=== PATIENT | female | born 1970 ===

== ENCOUNTER 2016-10-06 14:04 | Emergency (ER) | payer MEDICAID ==
[2016-10-06 14:09] VITALS: BP 147/93; PULSE 83; RESP 20; TEMP 98; O2SAT 100
[2016-10-06] MEDS ORDERED: Sodium Chloride 0.9% 1,000 ML IV STA (14:47)
--- NOTE | 2016-10-06 14:57 | ED PDOC ---
HPI: Female Pain Time Seen by Provider: 10/06/16 14:36 Chief Complaint (Nursing): Abdominal Pain Chief Complaint (Provider): pelvic cramping History Per: Patient History/Exam Limitations: no limitations Onset/Duration Of Symptoms: Days (x 1) Current Symptoms Are (Timing): Still Present Associated Symptoms: Nausea. denies: Fever, Vomiting, Urinary Symptoms Additional Complaint(s): Mariela Tripathi is a 46 year old female, with a previous medical history of hypertension, who presents to the ED with complaints of pelvic cramping since yesterday. Patient reports developing associated symptoms of nausea, headache, vaginal bleeding and right sided pain earlier today. She denies any fever, chills, vomiting or urinary symptoms. Patient states to taking 800 mg ibuprofen yesterday and 2 advil pills today with minimal relief. Patient reports undergoing an endometrial ablation on September 14, 2016. PMD: Krish Castro MD Abnormal Vaginal Bleeding: Yes Past Medical History Reviewed: Historical Data, Nursing Documentation, Vital Signs Vital Signs: Last Vital Signs Temp 98 F 10/06/16 14:06 Pulse 83 10/06/16 14:06 Resp 20 10/06/16 14:06 BP 147/93 H 10/06/16 14:06 Pulse Ox 100 10/06/16 14:06 - Medical History PMH: HTN, Kidney Stones Denies: HIV, Chronic Kidney Disease - Surgical History Surgical History: Appendectomy, (x2) - Family History Family History: States: Unknown Family Hx - Home Medications Home Medications: Ambulatory Orders Medication Instructions Recorded Amoxicillin/Clavulanate [Augmentin 1 tab PO BID #14 tab 10/17/15 875 MG-125 MG] Oxycodone HCl/Acetaminophen 1 each PO TID PRN #60 tablet 10/17/15 [Percocet 5-325 mg Tablet] - Allergies Allergies/Adverse Reactions: Allergies Allergy/AdvReac Type Severity Reaction Status Date / Time No Known Allergies Allergy Verified 12/20/14 16:34 Review of Systems ROS Statement: Except As Marked, All Systems Reviewed And Found Negative Constitutional: Negative for: Fever, Chills Gastrointestinal: Positive for: Nausea. Negative for: Vomiting Genitourinary Female: Positive for: Vaginal Bleeding, Pelvic Pain. Negative for : Dysuria, Frequency, Incontinence Physical Exam - Reviewed Nursing Documentation Reviewed: Yes Vital Signs Reviewed: Yes - Physical Exam Appears: Positive for: Well, Non-toxic, No Acute Distress Head Exam: Positive for: ATRAUMATIC, NORMAL INSPECTION, NORMOCEPHALIC Skin: Positive for: Normal Color, Warm, Dry Neck: Positive for: Normal, Painless ROM Cardiovascular/Chest: Positive for: Regular Rate, Rhythm Respiratory: Positive for: CNT, Normal Breath Sounds Gastrointestinal/Abdominal: Positive for: Bowel Sounds, Soft, Tenderness (LUQ, RLQ, epigastric and suprapubic ). Negative for: Mass, Distended, Guarding, Rebound Extremity: Positive for: Normal ROM Neurologic/Psych: Positive for: Alert, Oriented - ECG O2 Sat by Pulse Oximetry: 100 (RA) Pulse Ox Interpretation: Normal Medical Decision Making Medical Decision Making: Initial Impression: Pelvic Pain vs UTI vs complication post endometrial ablation Initial Plan: * labs * urine * urine dipstick * IV NS 1,000 ml at 1,000 ml/hr * toradol 30 mg IV * zofran 4gm IV * urinalysis * US pelvis/transvag * reevaluation Scribe Attestation: Documented by Cynthia Sanchez, acting as a scribe for Rina Oneal MD. Provider Scribe Attestation: All medical record entries made by the Scribe were at my direction and personally dictated by me. I have reviewed the chart and agree that the record accurately reflects my personal performance of the history, physical exam, medical decision making, and the department course for this patient. I have also personally directed, reviewed, and agree with the discharge instructions and disposition.
[2016-10-06 15:18] LABS: BASO % 0.5 % (0.0-2.0); EOS # 0.5 K/uL (0.0-0.7); EOS % 8.1 % (0.0-4.0); LYMPH # 2.2 K/uL (1.0-4.3); LYMPH % 32.1 % (20.0-40.0); MEAN CELL VOLUME 91.5 fl (81.0-99.0); MEAN CORPUSCULAR HEMOGLOBIN 30.6 pg (27.0-31.0); MEAN CORPUSCULAR HGB CONC 33.4 g/dL (33.0-37.0); MEAN PLATELET VOLUME 9.5 fl (7.2-11.7); MONO # 0.6 K/uL (0.0-0.8); MONO % 9.3 % (0.0-10.0); NEUT # 3.4 K/uL (1.8-7.0); RED CELL DISTRIBUTION WIDTH 13.2 % (11.5-14.5); WHITE BLOOD COUNT 6.8 K/uL (4.8-10.8)
[2016-10-06 15:23] LABS: ALB/GLOB RATIO 1.3 (1.0-2.1); ALKALINE PHOSPHATASE 47 U/L (38-126); ALT/SGPT 33 U/L (9-52); AST/SGOT 29 U/L (14-36); BLOOD UREA NITROGEN 14 mg/dl (7-17); CALCIUM 9.2 mg/dL (8.4-10.2); CARBON DIOXIDE 27 mmol/L (22-30); CHLORIDE 105 mmol/L (98-107); GFR AFRICAN-AMERICAN > 60; GLUCOSE,RANDOM 109 mg/dL (65-105); POTASSIUM 4.2 MMOL/L (3.6-5.0); SODIUM 143 mmol/l (132-148); TOTAL PROTEIN 7.5 G/DL (6.3-8.2)
--- NOTE | 2016-10-06 15:40 | ED PDOC ---
- Laboratory Results Result Diagrams: 10/06/16 15:03 10/06/16 15:03 - ECG O2 Sat by Pulse Oximetry: 100 (RA) Pulse Ox Interpretation: Normal Medical Decision Making Medical Decision Makin:00 Patient signed out to me by Rina Oneal MD pending US results and final disposition. Informed by nurse that pt left before workupr performed. Scribe Attestation: Documented by Cynthia Sanchez, acting as a scribe for Oneyda Davis MD. Provider Scribe Attestation: All medical record entries made by the Scribe were at my direction and personally dictated by me. I have reviewed the chart and agree that the record accurately reflects my personal performance of the history, physical exam, medical decision making, and the department course for this patient. I have also personally directed, reviewed, and agree with the discharge instructions and disposition. Disposition - Clinical Impression Clinical Impression: Abdominal pain - POA Present On Arrival: None - Disposition Disposition: Eloped Disposition Time: 14:00 Condition: UNKNOWN
[2016-10-06 16:06] LABS: RBC URINE 484 /hpf (0-3); URINE BACTERIA RARE (<OCC); URINE BILIRUBIN NEGATIVE (NEGATIVE); URINE BLOOD LARGE (NEGATIVE); URINE COLOR YELLOW (YELLOW); URINE GLUCOSE (UA) NEG (Normal); URINE KETONE NEGATIVE (NEGATIVE); URINE LEUKOCYTE ESTERASE TRACE Leu/uL (Negative); URINE PROTEIN 100 mg/dL (NEGATIVE); URINE UROBILINOGEN 0.2-1.0 mg/dL (0.2-1.0); WBC URINE 17 /hpf (0-5)
== END 2016-10-06 15:49 | disposition left against medical advice (07) ==
LOC: H.ER 14:04
DX: R10.2 Pelvic and perineal pain (principal)

== ENCOUNTER 2017-04-02 12:40 | Emergency (ER) | payer MEDICAID ==
[2017-04-02 13:23] VITALS: BMI 35.6
[2017-04-02 13:24] VITALS: BP 146/94; PULSE 83; RESP 17; TEMP 97.9; O2SAT 100
[2017-04-02 14:15] LABS: BASO % 0.4 % (0.0-2.0); EOS # 0.6 K/uL (0.0-0.7); EOS % 8.2 % (0.0-4.0); HEMATOCRIT 38.9 % (34.0-47.0); LYMPH # 2.2 K/uL (1.0-4.3); LYMPH % 28.7 % (20.0-40.0); MEAN CORPUSCULAR HEMOGLOBIN 30.9 pg (27.0-31.0); MEAN CORPUSCULAR HGB CONC 33.9 g/dL (33.0-37.0); MEAN PLATELET VOLUME 9.6 fl (7.2-11.7); MONO # 0.6 K/uL (0.0-0.8); MONO % 7.6 % (0.0-10.0); NEUT # 4.3 K/uL (1.8-7.0); NEUT % 55.1 % (50.0-75.0); RED CELL DISTRIBUTION WIDTH 13.3 % (11.5-14.5); WHITE BLOOD COUNT 7.8 K/uL (4.8-10.8)
--- NOTE | 2017-04-02 14:28 | ED PDOC ---
HPI: Abdomen Time Seen by Provider: 04/02/17 13:29 Chief Complaint (Nursing): Abdominal Pain Chief Complaint (Provider): Abdominal Pain History Per: Patient History/Exam Limitations: no limitations Onset/Duration Of Symptoms: Other (x 4 weeks) Current Symptoms Are (Timing): Still Present Additional Complaint(s): Mariela is a 46 year old female, with a past medical history of cholecystectomy , appendectomy, and endometrial ablation, who presents to the Emergency Department complaining of abdominal pain since March 07. Patient states she has epigastric pain that radiates to left flank that occurs everyday. States vomiting and diarrhea that resolved after PMD gave Zofran and Lomotil. Patient states she vomited yesterday. Denies fever and symptoms. PMD: Krish Castro Abnormal Vaginal Bleeding: No Past Medical History Reviewed: Historical Data, Nursing Documentation, Vital Signs Vital Signs: Last Vital Signs Temp 97.9 F 04/02/17 13:23 Pulse 83 04/02/17 13:23 Resp 17 04/02/17 13:23 BP 146/94 H 04/02/17 13:23 Pulse Ox 100 04/02/17 16:08 - Medical History PMH: HTN, Kidney Stones Denies: HIV, Chronic Kidney Disease - Surgical History Surgical History: Appendectomy, Cholecystectomy, (x2) Other surgeries: Endometrial Ablation - Family History Family History: States: Unknown Family Hx - Home Medications Home Medications: Ambulatory Orders Medication Instructions Recorded Amoxicillin/Clavulanate [Augmentin 1 tab PO BID #14 tab 10/17/15 875 MG-125 MG] Oxycodone HCl/Acetaminophen 1 each PO TID PRN #60 tablet 10/17/15 [Percocet 5-325 mg Tablet] Dicyclomine [Bentyl] 20 mg PO QID PRN #10 tab 04/02/17 - Allergies Allergies/Adverse Reactions: Allergies Allergy/AdvReac Type Severity Reaction Status Date / Time No Known Allergies Allergy Verified 04/02/17 13:23 Review of Systems ROS Statement: Except As Marked, All Systems Reviewed And Found Negative Constitutional: Negative for: Fever Gastrointestinal: Positive for: Vomiting Genitourinary Female: Negative for: Dysuria, Hematuria Physical Exam - Reviewed Nursing Documentation Reviewed: Yes Vital Signs Reviewed: Yes - Physical Exam Appears: Positive for: Non-toxic Head Exam: Positive for: ATRAUMATIC, NORMAL INSPECTION, NORMOCEPHALIC Eye Exam: Positive for: Normal appearance Cardiovascular/Chest: Positive for: Regular Rate, Rhythm Respiratory: Positive for: Normal Breath Sounds Gastrointestinal/Abdominal: Positive for: Bowel Sounds, Soft, Tenderness (Mild Bilateral Lower Quadrant). Negative for: Mass, Distended, Guarding, Rebound Back: Positive for: L CVA Tenderness. Negative for: Vertebral Tenderness Neurologic/Psych: Positive for: Alert, Oriented - Laboratory Results Result Diagrams: 04/02/17 14:07 04/02/17 14:07 - ECG O2 Sat by Pulse Oximetry: 100 (RA) Pulse Ox Interpretation: Normal Medical Decision Making Medical Decision Making: Time: 13:44 Plan: - CT Abdominal and Pelvis without PO or IV Contrast - EKG - CMP - Lipase - CBC - Pepcid 20 mg IVP STAT - Zofran Inj - Urinalysis Scribe Attestation: Documented by Pietro Sandhu, acting as a scribe for Cynthia Taylor MD Provider Scribe Attestation: All medical record entries made by the Scribe were at my direction and personally dictated by me. I have reviewed the chart and agree that the record accurately reflects my personal performance of the history, physical exam, medical decision making, and the department course for this patient. I have also personally directed, reviewed, and agree with the discharge instructions and disposition. Disposition - Clinical Impression Clinical Impression: Abdominal pain in female - Patient ED Disposition Is Patient to be Admitted: No - Disposition Referrals: Krish Castro MD [Family Provider] - Disposition: Routine/Home Disposition Time: 16:11 Condition: STABLE Prescriptions: Dicyclomine [Bentyl] 20 mg PO QID PRN #10 tab PRN Reason: Pain, Moderate (4-7) Instructions: Abdominal Pain (ED) Forms: [employer] (Irish)
[2017-04-02 14:31] LABS: ALKALINE PHOSPHATASE 61 U/L (38-126); ALT/SGPT 61 U/L (9-52); AST/SGOT 50 U/L (14-36); BILIRUBIN,TOTAL 1.2 mg/dl (0.2-1.3); BLOOD UREA NITROGEN 16 mg/dl (7-17); CALCIUM 9.3 mg/dL (8.4-10.2); CARBON DIOXIDE 26 mmol/L (22-30); CHLORIDE 105 mmol/L (98-107); GFR AFRICAN-AMERICAN > 60; GLUCOSE,RANDOM 110 mg/dL (65-105); LIPASE 67 U/L (23-300); POTASSIUM 3.9 MMOL/L (3.6-5.0); SODIUM 141 mmol/l (132-148); TOTAL PROTEIN 8.3 G/DL (6.3-8.2)
[2017-04-02 14:32] LABS: URINE BILIRUBIN NEGATIVE (NEGATIVE); URINE BLOOD SMALL (NEGATIVE); URINE COLOR YELLOW (YELLOW); URINE GLUCOSE (UA) NEG (Normal); URINE KETONE NEGATIVE (NEGATIVE); URINE LEUKOCYTE ESTERASE NEG Leu/uL (Negative); URINE PROTEIN NEGATIVE (NEGATIVE); URINE UROBILINOGEN 0.2-1.0 mg/dL (0.2-1.0)
[2017-04-02 14:33] LABS: ALB/GLOB RATIO 1.2 (1.0-2.1); RBC URINE 9 /hpf (0-3); WBC URINE 3 /hpf (0-5)
--- NOTE | 2017-04-02 15:56 | CT ---
PROCEDURE: CT Abdomen and Pelvis without Oral or IV contrast. HISTORY: L flank pain COMPARISON: CT abdomen and pelvis without contrast performed 12/20/14, limited abdominal ultrasound performed 10/15/15 TECHNIQUE: Contiguous axial images of the abdomen and pelvis. No oral or IV contrast administered. Coronal and Sagittal reformats generated and reviewed. Radiation dose: Total exam DLP = 1022.50 mGy-cm. This CT exam was performed using one or more of the following dose reduction techniques: Automated exposure control, adjustment of the mA and/or kV according to patient size, and/or use of iterative reconstruction technique. FINDINGS: There is limited evaluation of the solid organs without the administration of IV contrast. LOWER THORAX: No visible consolidation, pleural effusion, or pneumothorax. LIVER: Hypoattenuation of the liver compatible with hepatic steatosis. GALLBLADDER AND BILE DUCTS: Cholecystectomy. PANCREAS: Unremarkable unenhanced appearance. SPLEEN: Unremarkable unenhanced appearance. ADRENALS: Unremarkable unenhanced appearance. KIDNEYS AND URETERS: No hydronephrosis or obstructing renal calculus. Punctate nonobstructing (approximately 1 mm) left renal calculus. 13 mm probable left parapelvic cyst. BLADDER: The urinary bladder appears unremarkable. REPRODUCTIVE: Uterus is present. APPENDIX: Postsurgical changes consistent with appendectomy. No secondary signs of acute appendicitis. BOWEL: The stomach is nondistended. Lack of oral contrast limits evaluation for bowel pathology. The bowel loops appear within normal limits of caliber without evidence of intestinal obstruction. PERITONEUM: No significant free fluid. No definite free air. LYMPH NODES: No bulky lymphadenopathy identified. VASCULATURE: No aortic aneurysm. BONES: Mild degenerative changes. OTHER FINDINGS: None. IMPRESSION: Hypoattenuation of the liver compatible with hepatic steatosis. Cholecystectomy. 13 mm probable left parapelvic renal cyst. Punctate nonobstructing (approximately 1 mm) left renal calculus.
--- NOTE | 2017-04-03 10:54 | CARD ---
APPROVED REPORT EKG Measurement Heart [id number] <Conclusion> Normal sinus rhythm Normal ECG
== END 2017-04-02 17:00 | disposition home or self-care (01) ==
LOC: H.ER 12:40
DX: R10.2 Pelvic and perineal pain (principal); Z87.442 Personal history of urinary calculi; I10 Essential (primary) hypertension
CPT/HCPCS: 74176; 80053; 81003; 81025; 83690; 85025; 93005; 96374; 99283; J2405

== ENCOUNTER 2017-05-08 14:31 | Emergency (ER) | payer MEDICAID ==
[2017-05-08 14:32] VITALS: BMI 35.6
[2017-05-08 14:43] VITALS: BP 156/102; PULSE 103; TEMP 97.6; O2SAT 97
[2017-05-08] MEDS ORDERED: Albuterol-Ipratrop 3 mg / 0.5 (3 ml) UD INH STA (15:03)
--- NOTE | 2017-05-08 15:05 | ED PDOC ---
HPI: SOB/CHF/COPD Time Seen by Provider: 05/08/17 14:49 Chief Complaint (Nursing): Shortness Of Breath Chief Complaint (Provider): Cough History Per: Patient Additional Complaint(s): 47 yo female, PMH of HTN, presents to ED with complaints of Difficulty breathing , cough and chest tightness x 2 weeks. Past Medical History Reviewed: Nursing Documentation, Vital Signs Vital Signs: Last Vital Signs Temp 97.6 F 05/08/17 14:40 Pulse 103 H 05/08/17 14:40 Resp 18 05/08/17 15:17 BP 156/102 H 05/08/17 14:40 Pulse Ox 97 05/08/17 15:05 - Medical History PMH: HTN, Kidney Stones Denies: HIV, Chronic Kidney Disease - Surgical History Surgical History: Appendectomy, Cholecystectomy, (x2) - Family History Family History: States: Unknown Family Hx - Living Arrangements Living Arrangements: With Family - Social History Current smoker - smoking cessation education provided: No Alcohol: None Drugs: Denies - Home Medications Home Medications: Ambulatory Orders Medication Instructions Recorded Amoxicillin/Clavulanate [Augmentin 1 tab PO BID #14 tab 10/17/15 875 MG-125 MG] Oxycodone HCl/Acetaminophen 1 each PO TID PRN #60 tablet 10/17/15 [Percocet 5-325 mg Tablet] Dicyclomine [Bentyl] 20 mg PO QID PRN #10 tab 04/02/17 Azithromycin [Zithromax] 500 mg PO DAILY #6 tab 05/08/17 Methylprednisolone [Medrol Dose 4 mg PO DAILY #21 mg 05/08/17 Pack (21 tabs)] Promethazine HCl/Codeine 5 ml PO HS #80 ml 05/08/17 [Prometh-Codein 6.25-10 mg/5 ml] - Allergies Allergies/Adverse Reactions: Allergies Allergy/AdvReac Type Severity Reaction Status Date / Time No Known Allergies Allergy Verified 04/02/17 13:23 Curb-65 Severity Score - CURB-65 Severity Score Confusion: No Bun >19mg/dl (>7mmol/L): No Respiratory Rate greater than/equal to 30: No Systolic BP <90 or Diastolic BP less than/equal 60mmHg: No Age >64: No Curb-65 Score: 0 Percentage 30-day mortality: 0.6% Wells Criteria for PE - Wells Criteria for Pulmonary Embolism Clinical Signs and Symptoms of DVT: No P.E is #1 Diagnosis, or Equally Likely: No Heart Rate >100: Yes Immobilization at least 3 days;Surgery previous 4 weeks: No Previous, objectively diagnosed PE or DVT: No Hemoptysis: No Malignancy w/treatment within 6 months, or palliative: No Total Score: 1.5 Review of Systems ROS Statement: Except As Marked, All Systems Reviewed And Found Negative Respiratory: Positive for: Cough, Shortness of Breath Physical Exam - Reviewed Nursing Documentation Reviewed: Yes Vital Signs Reviewed: Yes - Physical Exam Appears: Positive for: Well, Non-toxic, No Acute Distress Head Exam: Positive for: ATRAUMATIC, NORMAL INSPECTION, NORMOCEPHALIC Skin: Positive for: Normal Color, Warm, DRY Eye Exam: Positive for: EOMI, Normal appearance, PERRL ENT: Positive for: Normal ENT Inspection Neck: Positive for: Normal, Painless ROM Cardiovascular/Chest: Positive for: Regular Rate, Rhythm Respiratory: Positive for: Normal Breath Sounds. Negative for: Decreased Breath Sounds, Accessory Muscle Use, Wheezing Gastrointestinal/Abdominal: Positive for: Normal Exam, Bowel Sounds, Soft Back: Positive for: Normal Inspection Extremity: Positive for: Normal ROM Neurologic/Psych: Positive for: Alert, Oriented - ECG O2 Sat by Pulse Oximetry: 97 Medical Decision Making Medical Decision Making: Duo-neb treatments initiated XR: NAd, as read by COURT Pt doing well on re-eval, no complaints of SOB or chest pain Disposition - Clinical Impression Clinical Impression: Bronchitis - Patient ED Disposition Is Patient to be Admitted: No - Disposition Disposition: Routine/Home Disposition Time: 16:53 Condition: STABLE Prescriptions: Azithromycin [Zithromax] 500 mg PO DAILY #6 tab Methylprednisolone [Medrol Dose Pack (21 tabs)] 4 mg PO DAILY #21 mg Promethazine HCl/Codeine [Prometh-Codein 6.25-10 mg/5 ml] 5 ml PO HS #80 ml Instructions: Acute Bronchitis (ED) Forms: [employer] (Algerian)
[2017-05-08 15:20] VITALS: RESP 18
--- NOTE | 2017-05-08 15:47 | RAD ---
HISTORY: cough and back pain COMPARISON: Chest radiograph dated 05/19/2012 TECHNIQUE: Chest PA and lateral FINDINGS: LUNGS: No active pulmonary disease. PLEURA: No significant pleural effusion identified. No pneumothorax apparent. CARDIOVASCULAR: Normal. OSSEOUS STRUCTURES: No significant abnormalities. VISUALIZED UPPER ABDOMEN: Right upper quadrant surgical clips. OTHER FINDINGS: None. IMPRESSION: No active disease.
--- NOTE | 2017-05-09 10:55 | CARD ---
APPROVED REPORT EKG Measurement Heart [id number] <Conclusion> Normal sinus rhythm Nonspecific ST abnormality Prolonged QT Abnormal ECG
== END 2017-05-08 16:51 | disposition home or self-care (01) ==
LOC: H.ER 14:31
DX: J40 Bronchitis, not specified as acute or chronic (principal); I10 Essential (primary) hypertension; Z87.442 Personal history of urinary calculi

== ENCOUNTER 2018-06-25 14:02 | Emergency (ER) | payer MEDICAID, OTHER ==
[2018-06-25 14:02] VITALS: BMI 35.6
[2018-06-25 14:14] VITALS: RESP 18; O2SAT 100
--- NOTE | 2018-06-25 16:26 | RAD ---
Date of service: 06/25/2018 PROCEDURE: Radiographs of the Left Shoulder HISTORY: pain COMPARISON: No prior. FINDINGS: BONES: Normal. No fracture. JOINTS: Normal. Glenohumeral and acromioclavicular joints preserved. No osteoarthritis. SOFT TISSUES: Normal. OTHER FINDINGS: None. IMPRESSION: Normal radiographs of the left shoulder.
--- NOTE | 2018-06-25 17:02 | ED PDOC ---
Upper Extremity Pain/Injury Time Seen by Provider: 06/25/18 14:54 Chief Complaint (Nursing): Upper Extremity Problem/Injury Chief Complaint (Provider): Left shoulder pain History Per: Patient History/Exam Limitations: no limitations Onset/Duration Of Symptoms: Days Current Symptoms Are (Timing): Still Present Quality: "Pain" Exacerbating Factor(s): Movement Additional History Per: Patient Additional Complaint(s): 48yo female, with no past medical history, comes to ER reporting left shoulder pain with tingling in left arm x 2 days. She denies any trauma or injury to the site. Patient denies any associated chest pain, shortness of breath or weakness in that arm. PMD: Dr. Castro Past Medical History Reviewed: Historical Data, Nursing Documentation, Vital Signs Vital Signs: Last Vital Signs Temp 98.6 F 06/25/18 14:39 Pulse 97 H 06/25/18 14:39 Resp 18 06/25/18 14:39 BP 136/84 06/25/18 14:39 Pulse Ox 100 06/25/18 14:39 - Medical History PMH: HTN, Kidney Stones Denies: HIV, Chronic Kidney Disease - Surgical History Surgical History: Appendectomy, Cholecystectomy, (x2) - Family History Family History: States: Unknown Family Hx - Home Medications Home Medications: Ambulatory Orders Medication Instructions Recorded Amoxicillin/Clavulanate [Augmentin 1 tab PO BID #14 tab 10/17/15 875 MG-125 MG] Oxycodone HCl/Acetaminophen 1 each PO TID PRN #60 tablet 10/17/15 [Percocet 5-325 mg Tablet] Dicyclomine [Bentyl] 20 mg PO QID PRN #10 tab 04/02/17 Azithromycin [Zithromax] 500 mg PO DAILY #6 tab 05/08/17 Methylprednisolone [Medrol Dose 4 mg PO DAILY #21 mg 05/08/17 Pack (21 tabs)] Promethazine HCl/Codeine 5 ml PO HS #80 ml 05/08/17 [Prometh-Codein 6.25-10 mg/5 ml] Naproxen [Naprosyn] 500 mg PO Q12H #20 tab 06/25/18 - Allergies Allergies/Adverse Reactions: Allergies Allergy/AdvReac Type Severity Reaction Status Date / Time No Known Allergies Allergy Verified 06/25/18 14:06 Review of Systems ROS Statement: Except As Marked, All Systems Reviewed And Found Negative Musculoskeletal: Positive for: Shoulder Pain (left) Neurological: Negative for: Weakness, Numbness Physical Exam - Reviewed Nursing Documentation Reviewed: Yes Vital Signs Reviewed: Yes - Physical Exam Appears: Positive for: Non-toxic, No Acute Distress Head Exam: Positive for: ATRAUMATIC, NORMAL INSPECTION, NORMOCEPHALIC Skin: Positive for: Normal Color Eye Exam: Positive for: Normal appearance Neck: Positive for: Supple Cardiovascular/Chest: Positive for: Regular Rate, Rhythm, Chest Non Tender. Negative for: Murmur Respiratory: Positive for: Normal Breath Sounds. Negative for: Wheezing Gastrointestinal/Abdominal: Positive for: Normal Exam, Soft Back: Positive for: Normal Inspection Extremity: Positive for: Normal ROM (FROM left shoulder; pain elicited with raising arm above lateral). Negative for: Tenderness (+ left shoulder non tender), Deformity, Swelling Neurologic/Psych: Positive for: Alert, Oriented, Other (normal distal sensations left arm). Negative for: Motor/Sensory Deficits - ECG ECG: Positive for: Interpreted By Me, Viewed By Me ECG Rhythm: Positive for: Normal QRS, Normal ST Segment, Sinus Rhythm. Negative for: ST/T Changes Rate: 98 O2 Sat by Pulse Oximetry: 100 (RA) Pulse Ox Interpretation: Normal Medical Decision Making Medical Decision Makinyo female with left shoulder pain; likely musculoskeletal Plan: -- XR left shoulder XR reviewed, no signs of fractures or dislocation noted. ------- Scribe Attestation: Documented by Hilda Penn acting as a scribe for Edgar Chan MD. Provider Attestation: All medical record entries made by the Scribe were at my direction and personally dictated by me. I have reviewed the chart and agree that the record accurately reflects my personal performance of the history, physical exam, medical decision making, and the department course for this patient. I have also personally directed, reviewed, and agree with the discharge instructions and disposition. Disposition - Clinical Impression Clinical Impression: Radiculopathy affecting upper extremity - Patient ED Disposition Is Patient to be Admitted: No Counseled Patient/Family Regarding: Studies Performed, Diagnosis, Need For Fo llowup, Rx Given - Disposition Referrals: [facility] [Outside] Disposition: Routine/Home Disposition Time: 17:25 Condition: STABLE Prescriptions: Naproxen [Naprosyn] 500 mg PO Q12H #20 tab Instructions: Radiculopathy Forms: [employer] (Scottish)
[2018-06-25 17:25] VITALS: BP 137/80; TEMP 98.5
[2018-06-25 17:40] VITALS: PULSE 98
== END 2018-06-25 17:24 | disposition home or self-care (01) ==
LOC: H.ER 14:02
DX: M54.12 Radiculopathy, cervical region (principal); I10 Essential (primary) hypertension

== ENCOUNTER 2018-07-30 09:35 | Inpatient (IN) | payer OTHER ==
[2018-07-30 09:38] VITALS: BMI 36.6
--- NOTE | 2018-07-30 09:59 | ED PDOC ---
HPI: General Adult Time Seen by Provider: 07/30/18 09:41 Chief Complaint (Nursing): Upper Extremity Problem/Injury Chief Complaint (Provider): neck and arm pain History Per: Patient History/Exam Limitations: no limitations Current Symptoms Are (Timing): Still Present Severity: Severe Pain Scale Rating Of: 7 Recently: Treated By A Physician Additional Complaint(s): 48yo female c/o worsening and persistent neck pain radiating to L arm now with intermittent numbness to arm. States had outpatient MRI but unsure of results, states numbness to arm is new over last few days and worsening. Denies fever, headache, chest pain or SOB. Past Medical History Reviewed: Historical Data, Nursing Documentation, Vital Signs Vital Signs: Last Vital Signs Temp 98.6 F 07/30/18 09:38 Pulse 96 H 07/30/18 09:38 Resp 18 07/30/18 09:38 BP 153/86 H 07/30/18 09:38 Pulse Ox 99 07/30/18 09:38 - Medical History PMH: Diabetes, HTN, Kidney Stones Denies: HIV, Chronic Kidney Disease - Surgical History Surgical History: Appendectomy, Cholecystectomy, (x2) - Family History Family History: States: Unknown Family Hx - Home Medications Home Medications: Ambulatory Orders Medication Instructions Recorded Amoxicillin/Clavulanate [Augmentin 1 tab PO BID #14 tab 10/17/15 875 MG-125 MG] Oxycodone HCl/Acetaminophen 1 each PO TID PRN #60 tablet 10/17/15 [Percocet 5-325 mg Tablet] Dicyclomine [Bentyl] 20 mg PO QID PRN #10 tab 04/02/17 Azithromycin [Zithromax] 500 mg PO DAILY #6 tab 05/08/17 Methylprednisolone [Medrol Dose 4 mg PO DAILY #21 mg 05/08/17 Pack (21 tabs)] Promethazine HCl/Codeine 5 ml PO HS #80 ml 05/08/17 [Prometh-Codein 6.25-10 mg/5 ml] Naproxen [Naprosyn] 500 mg PO Q12H #20 tab 06/25/18 - Allergies Allergies/Adverse Reactions: Allergies Allergy/AdvReac Type Severity Reaction Status Date / Time No Known Allergies Allergy Verified 06/25/18 14:06 Review of Systems ROS Statement: Except As Marked, All Systems Reviewed And Found Negative Constitutional: Negative for: Fever ENT: Negative for: Ear Discharge, Throat Pain Cardiovascular: Negative for: Chest Pain Respiratory: Negative for: Cough Gastrointestinal: Negative for: Abdominal Pain Genitourinary Female: Negative for: Dysuria Musculoskeletal: Negative for: Neck Pain Skin: Negative for: Rash, Lesions Neurological: Negative for: Weakness, Numbness Psych: Negative for: Anxiety Physical Exam - Reviewed Nursing Documentation Reviewed: Yes Vital Signs Reviewed: Yes - Physical Exam Appears: Positive for: Well, Non-toxic, No Acute Distress Head Exam: Positive for: ATRAUMATIC, NORMAL INSPECTION, NORMOCEPHALIC Skin: Positive for: Normal Color, Warm, DRY Eye Exam: Positive for: EOMI, Normal appearance, PERRL ENT: Positive for: Normal ENT Inspection Neck: Positive for: Normal, Painless ROM Cardiovascular/Chest: Positive for: Regular Rate, Rhythm Respiratory: Positive for: CNT, Normal Breath Sounds Pulses-Radial (L): 3+/4+ Pulses-Radial (R): 3+/4+ Gastrointestinal/Abdominal: Positive for: Soft. 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 Care transferred 10am. Tylenol ordered for pain. Disposition - Clinical Impression Clinical Impression: Neck pain, Radicular pain in left arm, Left upper extremity numbness - Patient ED Disposition Is Patient to be Admitted: Yes - Disposition Disposition Time: 10:00 Condition: STABLE
[2018-07-30 10:19] LABS: BASO % 0.3 % (0.0-2.0); EOS # 0.5 K/uL (0.0-0.7); EOS % 9.3 % (0.0-4.0); HEMOGLOBIN 13.4 g/dL (12.0-16.0); LYMPH # 1.8 K/uL (1.0-4.3); LYMPH % 35.3 % (20.0-40.0); MEAN CELL VOLUME 90.9 fl (81.0-99.0); MEAN CORPUSCULAR HEMOGLOBIN 31.5 pg (27.0-31.0); MEAN CORPUSCULAR HGB CONC 34.6 g/dL (33.0-37.0); MEAN PLATELET VOLUME 9.5 fl (7.2-11.7); MONO # 0.4 K/uL (0.0-0.8); MONO % 7.8 % (0.0-10.0); NEUT # 2.5 K/uL (1.8-7.0); NEUT % 47.3 % (50.0-75.0); RBC 4.27 Mil/uL (3.80-5.20); RED CELL DISTRIBUTION WIDTH 13.6 % (11.5-14.5); WHITE BLOOD COUNT 5.2 K/uL (4.8-10.8)
[2018-07-30 10:24] LABS: BLOOD UREA NITROGEN 20 mg/dl (7-17); CALCIUM 9.6 mg/dL (8.4-10.2); GFR NON-AFRICAN AMERICAN > 60
[2018-07-30] MEDS ORDERED: Oxycodone/Acetaminophen 5/325 mg Tab PO PRN (10:25)
[2018-07-30 10:33] LABS: PROTHROMBIN TIME 11.1 Seconds (9.8-13.1)
[2018-07-30 10:36] LABS: PARTIAL THROMBOPLASTIN TIME 30.6 Seconds (25.6-37.1)
--- NOTE | 2018-07-30 11:19 | RAD ---
Date of service: 07/30/2018 HISTORY: r/o infiltrate COMPARISON: 05/08/2017 TECHNIQUE: Chest PA and lateral views FINDINGS: LUNGS: No active pulmonary disease. PLEURA: No significant pleural effusion identified. No pneumothorax apparent. CARDIOVASCULAR: No aortic atherosclerotic calcification present. Normal cardiac size. No pulmonary vascular congestion. OSSEOUS STRUCTURES: No significant abnormalities. VISUALIZED UPPER ABDOMEN: Normal. OTHER FINDINGS: None. IMPRESSION: No active disease.
[2018-07-30] MEDS ORDERED: Oxycodone/Acetaminophen 5/325 mg Tab ONE (14:46)
--- NOTE | 2018-07-30 20:22 | CARD ---
APPROVED REPORT Date of service: 07/30/2018 EKG Measurement Heart [id number] <Conclusion> Normal sinus rhythm Nonspecific ST abnormality Abnormal ECG
[2018-07-30] MEDS ORDERED: Dextrose 5%/Lactated Ringer's 1,000 ML IV SCH (23:45)
[2018-07-31 00:48] LABS: SQUAMOUS EPITHIAL 4 /hpf (0-5); URINE BILIRUBIN NEGATIVE (NEGATIVE); URINE BLOOD SMALL (NEGATIVE); URINE CLARITY SLIGHTY-CLOUDY (Clear); URINE COLOR YELLOW (YELLOW); URINE GLUCOSE (UA) NEG (NEGATIVE); URINE LEUKOCYTE ESTERASE NEG Leu/uL (Negative); URINE PROTEIN NEGATIVE (NEGATIVE); URINE UROBILINOGEN 0.2-1.0 mg/dL (0.2-1.0)
[2018-07-31] MEDS ORDERED: Potassium Chloride 20 mEq 100 ML IVPB ONE (01:55)
[2018-07-31 06:34] LABS: BASO % 0.4 % (0.0-2.0); EOS # 0.5 K/uL (0.0-0.7); EOS % 9.1 % (0.0-4.0); HEMOGLOBIN 12.3 g/dL (12.0-16.0); LYMPH # 1.8 K/uL (1.0-4.3); LYMPH % 33.7 % (20.0-40.0); MEAN CELL VOLUME 90.8 fl (81.0-99.0); MEAN CORPUSCULAR HEMOGLOBIN 31.1 pg (27.0-31.0); MEAN CORPUSCULAR HGB CONC 34.3 g/dL (33.0-37.0); MEAN PLATELET VOLUME 9.6 fl (7.2-11.7); MONO # 0.4 K/uL (0.0-0.8); NEUT # 2.6 K/uL (1.8-7.0); NEUT % 48.8 % (50.0-75.0); NRBC % 0.1 % (0.0-0.0); RBC 3.94 Mil/uL (3.80-5.20); RED CELL DISTRIBUTION WIDTH 13.6 % (11.5-14.5); WHITE BLOOD COUNT 5.4 K/uL (4.8-10.8)
--- NOTE | 2018-07-31 06:37 | CP.PCM.HP ---
History of Present Illness - History of Present Illness History of Present Illness: This is a 48 y/o female admitted for intractable pain of the C spine and left upper extremity. She has a hx of herniated Disc of the lumbar and cervical area and had finished phys therapy in the past. 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 In the past two days pain has become intractable noni to the left upper ext hence sought ER eval. Medical Hx HTN DM 2 cholecystectomy Present on Admission - Present on Admission Any Indicators Present on Admission: No History of DVT/PE: No History of Uncontrolled Diabetes: Yes Urinary Catheter: No Decubitus Ulcer Present: No Review of Systems - Neurological Neurological: Numbness, Radicular Pain, Tingling Past Patient History - Infectious Disease Hx of Infectious Diseases: None - Past Medical History & Family History Past Medical History?: Yes - Past Social History Smoking Status: Never Smoked - CARDIAC Hx Cardiac Disorders: Yes Hx Hypertension: Yes - PULMONARY Hx Respiratory Disorders: No - NEUROLOGICAL Hx Neurological Disorder: No - HEENT Hx HEENT Problems: No - RENAL Hx Chronic Kidney Disease: Yes Hx Kidney Stones: Yes - ENDOCRINE/METABOLIC Hx Endocrine Disorders: Yes Hx Diabetes Mellitus Type 2: Yes - HEMATOLOGICAL/ONCOLOGICAL Hx Blood Disorders: No Hx Human Immunodeficiency Virus (HIV): No - INTEGUMENTARY Hx Dermatological Problems: No - MUSCULOSKELETAL/RHEUMATOLOGICAL Hx Musculoskeletal Disorders: No Hx Falls: No - GASTROINTESTINAL Hx Gastrointestinal Disorders: No - GENITOURINARY/GYNECOLOGICAL Hx Genitourinary Disorders: No - PSYCHIATRIC Hx Psychophysiologic Disorder: No - SURGICAL HISTORY Hx Surgeries: Yes Hx Appendectomy: Yes Hx Section: Yes (x2) Hx Cholecystectomy: Yes - ANESTHESIA Hx Anesthesia: Yes Hx Anesthesia Reactions: No Meds Allergies/Adverse Reactions: Allergies Allergy/AdvReac Type Severity Reaction Status Date / Time No Known Allergies Allergy Verified 06/25/18 14:06 Physical Exam - Head Exam Head Exam: NORMAL INSPECTION - Eye Exam Eye Exam: Normal appearance - ENT Exam ENT Exam: Mucous Membranes Moist - Respiratory Exam Respiratory Exam: Clear to Auscultation Bilateral - Cardiovascular Exam Cardiovascular Exam: REGULAR RHYTHM - GI/Abdominal Exam GI & Abdominal Exam: Normal Bowel Sounds - Neurological Exam Neurological exam: CN II-XII Intact Results - Vital Signs Recent Vital Signs: Last Vital Signs Temp 97.7 F 07/31/18 00:24 Pulse 86 07/31/18 00:24 Resp 18 07/31/18 00:24 BP 150/93 H 07/31/18 00:24 Pulse Ox 94 L 07/31/18 00:24 - Labs Result Diagrams: 07/30/18 10:00 07/30/18 10:00 Labs: Laboratory Results - last 24 hr 07/30/18 07/30/18 07/30/18 10:00 10:00 10:00 WBC 5.2 RBC 4.27 Hgb 13.4 Hct 38.8 MCV 90.9 MCH 31.5 H MCHC 34.6 RDW 13.6 Plt Count 217 MPV 9.5 Neut % (Auto) 47.3 L Lymph % (Auto) 35.3 [place] % (Auto) 7.8 Eos % (Auto) 9.3 H Baso % (Auto) 0.3 Neut # (Auto) 2.5 Lymph # (Auto) 1.8 [place] # (Auto) 0.4 Eos # (Auto) 0.5 Baso # (Auto) 0.0 PT 11.1 INR 1.0 APTT 30.6 Sodium 139 Potassium 3.4 L Chloride 98 Carbon Dioxide 31 H Anion Gap 13 BUN 20 H Creatinine 0.8 Est GFR ( Amer) > 60 Est GFR (Non-Af Amer) > 60 POC Glucose (mg/dL) Random Glucose 155 H Calcium 9.6 Urine Color Urine Clarity Urine pH Ur Specific [place] Urine Protein Urine Glucose (UA) Urine Ketones Urine Blood Urine Nitrate Urine Bilirubin Urine Urobilinogen Ur Leukocyte Esterase Urine RBC (Auto) Urine Microscopic WBC Ur Squamous Epith Cells BBK History Checked 07/30/18 07/31/18 07/31/18 17:38 00:35 06:00 WBC RBC Hgb Hct MCV MCH MCHC RDW Plt Count MPV Neut % (Auto) Lymph % (Auto) [place] % (Auto) Eos % (Auto) Baso % (Auto) Neut # (Auto) Lymph # (Auto) [place] # (Auto) Eos # (Auto) Baso # (Auto) PT INR APTT Sodium Potassium Chloride Carbon Dioxide Anion Gap BUN Creatinine Est GFR ( Amer) Est GFR (Non-Af Amer) POC Glucose (mg/dL) 139 H Random Glucose Calcium Urine Color Yellow Urine Clarity Slighty-cloudy Urine pH 5.0 Ur Specific [place] 1.024 Urine Protein Negative Urine Glucose (UA) Neg Urine Ketones Negative Urine Blood Small Urine Nitrate Negative Urine Bilirubin Negative Urine Urobilinogen 0.2-1.0 Ur Leukocyte Esterase Neg Urine RBC (Auto) 2 Urine Microscopic WBC 1 Ur Squamous Epith Cells 4 BBK History Checked Patient has bt Assessment & Plan (1) Cervical radiculopathy at C5 Status: Acute (2) Cervical radiculopathy at C6 Status: Acute (3) Herniated disc, cervical Status: Acute (4) Hypertension Status: Acute (5) Diabetes mellitus type 2 in obese Status: Acute - Assessment and Plan (Free Text) Plan: admit pain meds Neuro surg eval Cont all meds reviewed labs EKG and CXR Medically stable for surgery
[2018-07-31 07:06] LABS: ALB/GLOB RATIO 1.1 (1.0-2.1); ALBUMIN 3.7 g/dL (3.5-5.0); ALT/SGPT 57 U/L (9-52); AST/SGOT 56 U/L (14-36); BLOOD UREA NITROGEN 18 mg/dl (7-17); CALCIUM 8.6 mg/dL (8.4-10.2); GFR NON-AFRICAN AMERICAN > 60
--- NOTE | 2018-07-31 07:23 | CP.PCM.CON ---
History of Present Illness - History of Present Illness History of Present Illness: Neurosurgical consult: Dr. Zurita Patient is a 48 y/o female admitted due to severe neck pain. She states that she has had chronic neck pain for many years, but over the past 3 months, the pain had worsened. In addition, she has developed LUE weakness/numbness/tingling. Her symptoms have been resistant to conservative means with PT and oral meds. Her activities of daily living have been severely affected especially over the past week prompting her visit to the ER. The pain is dull, intermittent and worse with turning/bending her head and alleviated with inactivity. She is left handed but is having weakness and paresthesias to the LUE. She denies any LOC/dizziness/recent injuries. She also denies CP/SOB/N/V/D/fever/melena/dysuria. PMH: HTN, Asthma, NIDDM PSH: C section, appendectomy, cholecystectomy meds: as per med rec allergy: NKDA SH: denies ETOH/tobacco/drug use Review of Systems - Review of Systems All systems: reviewed and no additional remarkable complaints except Review of Systems: as per HPI Past Patient History - Infectious Disease Hx of Infectious Diseases: None - Past Medical History & Family History Past Medical History?: Yes Past Family History: Reviewed and not pertinent - Past Social History Smoking Status: Never Smoked - CARDIAC Hx Cardiac Disorders: Yes Hx Hypertension: Yes - PULMONARY Hx Respiratory Disorders: No - NEUROLOGICAL Hx Neurological Disorder: No - HEENT Hx HEENT Problems: No - RENAL Hx Chronic Kidney Disease: Yes Hx Kidney Stones: Yes - ENDOCRINE/METABOLIC Hx Endocrine Disorders: Yes Hx Diabetes Mellitus Type 2: Yes - HEMATOLOGICAL/ONCOLOGICAL Hx Blood Disorders: No Hx Human Immunodeficiency Virus (HIV): No - INTEGUMENTARY Hx Dermatological Problems: No - MUSCULOSKELETAL/RHEUMATOLOGICAL Hx Musculoskeletal Disorders: No Hx Falls: No - GASTROINTESTINAL Hx Gastrointestinal Disorders: No - GENITOURINARY/GYNECOLOGICAL Hx Genitourinary Disorders: No - PSYCHIATRIC Hx Psychophysiologic Disorder: No - SURGICAL HISTORY Hx Surgeries: Yes Hx Appendectomy: Yes Hx Section: Yes (x2) Hx Cholecystectomy: Yes - ANESTHESIA Hx Anesthesia: Yes Hx Anesthesia Reactions: No Meds Allergies/Adverse Reactions: Allergies Allergy/AdvReac Type Severity Reaction Status Date / Time No Known Allergies Allergy Verified 06/25/18 14:06 - Medications Medications: Current Medications Acetaminophen (Tylenol 325mg Tab) 650 mg PO Q6 PRN PRN Reason: Pain, Mild (1-3) Cyclobenzaprine HCl (Flexeril) 5 mg PO DAILY [facility] Last Admin: 07/30/18 17:49 Dose: 5 mg Home Med (Azilsartan Med/Chlorthalidone [Edarbyclor 40-12.5 Mg Tablet]) 1 tab PO DAILY [facility] Home Med (Liraglutide [Victoza 2-Chip]) 1.2 mg SQ DAILY [facility] Hydromorphone HCl (Dilaudid) 1 mg IVP Q6 PRN PRN Reason: Pain, severe (8-10) Last Admin: 07/30/18 23:08 Dose: 1 mg Dextrose/Lactated Ringer's (Dextrose 5%/Lactated Ringer's) 1,000 mls @ 80 mls/hr IV .[id number] [facility] Stop: 07/31/18 23:55 Last Admin: 07/31/18 00:29 Dose: 80 mls/hr Metformin HCl (Glucophage) 1,000 mg PO BID [facility] Last Admin: 07/30/18 17:50 Dose: 1,000 mg Montelukast Sodium (Singulair) 10 mg PO HS [facility] Last Admin: 07/30/18 23:23 Dose: 10 mg Oxycodone/Acetaminophen (Percocet 5/325 Mg Tab) 1 tab PO Q6 PRN PRN Reason: Pain, moderate (4-7) Stop: 08/02/18 10:26 Last Admin: 07/30/18 14:47 Dose: 1 tab Tramadol HCl (Ultram) 50 mg PO DAILY PRN PRN Reason: Pain, severe (8-10) Last Admin: 07/30/18 21:29 Dose: 50 mg Physical Exam - Constitutional Appears: Well, No Acute Distress - Head Exam Head Exam: ATRAUMATIC, NORMOCEPHALIC - Eye Exam Eye Exam: EOMI, Normal appearance - ENT Exam ENT Exam: Mucous Membranes Moist - Neck Exam Additional comments: No lesions/masses/erythema Painful ROM, especially turning head to left sensation and motor intact AXN/MN/UN/RN, diminished to LUE neg clonus - Respiratory Exam Respiratory Exam: NORMAL BREATHING PATTERN - Extremities Exam Extremities exam: Positive for: normal inspection - Back Exam Back exam: NORMAL INSPECTION - Neurological Exam Neurological exam: Alert, CN II-XII Intact, Oriented x3 - Psychiatric Exam Psychiatric exam: Normal Affect, Normal Mood - Skin Skin Exam: Normal Color, Warm Results - Vital Signs Recent Vital Signs: Last Vital Signs Temp 97.7 F 07/31/18 00:24 Pulse 86 07/31/18 00:24 Resp 18 07/31/18 00:24 BP 150/93 H 07/31/18 00:24 Pulse Ox 94 L 07/31/18 00:24 - Labs Result Diagrams: 07/31/18 06:00 07/31/18 06:00 Labs: Laboratory Results - last 24 hr 07/30/18 07/30/18 07/30/18 10:00 10:00 10:00 WBC 5.2 RBC 4.27 Hgb 13.4 Hct 38.8 MCV 90.9 MCH 31.5 H MCHC 34.6 RDW 13.6 Plt Count 217 MPV 9.5 Neut % (Auto) 47.3 L Lymph % (Auto) 35.3 [place] % (Auto) 7.8 Eos % (Auto) 9.3 H Baso % (Auto) 0.3 Neut # (Auto) 2.5 Lymph # (Auto) 1.8 [place] # (Auto) 0.4 Eos # (Auto) 0.5 Baso # (Auto) 0.0 PT 11.1 INR 1.0 APTT 30.6 Sodium 139 Potassium 3.4 L Chloride 98 Carbon Dioxide 31 H Anion Gap 13 BUN 20 H Creatinine 0.8 Est GFR ( Amer) > 60 Est GFR (Non-Af Amer) > 60 POC Glucose (mg/dL) Random Glucose 155 H Calcium 9.6 Total Bilirubin AST ALT Alkaline Phosphatase Total Protein Albumin Globulin Albumin/Globulin Ratio Urine Color Urine Clarity Urine pH Ur Specific [place] Urine Protein Urine Glucose (UA) Urine Ketones Urine Blood Urine Nitrate Urine Bilirubin Urine Urobilinogen Ur Leukocyte Esterase Urine RBC (Auto) Urine Microscopic WBC Ur Squamous Epith Cells Blood Type Antibody Screen BBK History Checked 07/30/18 07/31/18 07/31/18 17:38 00:35 06:00 WBC 5.4 RBC 3.94 Hgb 12.3 Hct 35.8 MCV 90.8 MCH 31.1 H MCHC 34.3 RDW 13.6 Plt Count 206 MPV 9.6 Neut % (Auto) 48.8 L Lymph % (Auto) 33.7 [place] % (Auto) 8.0 Eos % (Auto) 9.1 H Baso % (Auto) 0.4 Neut # (Auto) 2.6 Lymph # (Auto) 1.8 [place] # (Auto) 0.4 Eos # (Auto) 0.5 Baso # (Auto) 0.0 PT INR APTT Sodium Potassium Chloride Carbon Dioxide Anion Gap BUN Creatinine Est GFR ( Amer) Est GFR (Non-Af Amer) POC Glucose (mg/dL) 139 H Random Glucose Calcium Total Bilirubin AST ALT Alkaline Phosphatase Total Protein Albumin Globulin Albumin/Globulin Ratio Urine Color Yellow Urine Clarity Slighty-cloudy Urine pH 5.0 Ur Specific [place] 1.024 Urine Protein Negative Urine Glucose (UA) Neg Urine Ketones Negative Urine Blood Small Urine Nitrate Negative Urine Bilirubin Negative Urine Urobilinogen 0.2-1.0 Ur Leukocyte Esterase Neg Urine RBC (Auto) 2 Urine Microscopic WBC 1 Ur Squamous Epith Cells 4 Blood Type Antibody Screen BBK History Checked 07/31/18 07/31/18 06:00 06:00 WBC RBC Hgb Hct MCV MCH MCHC RDW Plt Count MPV Neut % (Auto) Lymph % (Auto) [place] % (Auto) Eos % (Auto) Baso % (Auto) Neut # (Auto) Lymph # (Auto) [place] # (Auto) Eos # (Auto) Baso # (Auto) PT INR APTT Sodium 136 Potassium 3.6 Chloride 98 Carbon Dioxide 32 H Anion Gap 10 BUN 18 H Creatinine 0.7 Est GFR ( Amer) > 60 Est GFR (Non-Af Amer) > 60 POC Glucose (mg/dL) Random Glucose 154 H Calcium 8.6 Total Bilirubin 0.8 AST 56 H ALT 57 H Alkaline Phosphatase 43 Total Protein 7.0 Albumin 3.7 Globulin 3.3 Albumin/Globulin Ratio 1.1 Urine Color Urine Clarity Urine pH Ur Specific [place] Urine Protein Urine Glucose (UA) Urine Ketones Urine Blood Urine Nitrate Urine Bilirubin Urine Urobilinogen Ur Leukocyte Esterase Urine RBC (Auto) Urine Microscopic WBC Ur Squamous Epith Cells Blood Type A POSITIVE Antibody Screen Negative BBK History Checked Patient has bt Assessment & Plan (1) Cervical spondylosis Assessment and Plan: Dr. Zurita recommends C5-6 anterior cervical discectomy and fusion in OR today Risks/benefits/alternatives explained to patient who understands and agrees to proceed with above NPO above d/w Dr. Zurita in agreement Status: Acute - Date & Time Date: 07/31/18 Time: 07:23
[2018-07-31] MEDS ORDERED: Propofol 10 mg/ml Inj (20 ML) ONE (07:29)
[2018-07-31] MEDS ORDERED: Succinylcholine Chloride 20 mg/ml Syr (5 ml) IV ONE (07:29)
[2018-07-31] MEDS ORDERED: Absorbable Gelatin Sponge Size 12-7 ONE (07:39)
[2018-07-31] MEDS ORDERED: Lidocaine 1% Inj (20ml) ONE (07:39)
[2018-07-31] MEDS ORDERED: Lidocaine 2% w Epi 1:100,000 Inj IJ ONE (07:40)
[2018-07-31] MEDS ORDERED: Thrombin Topical 5,000 Int Units Spray Kit ONE (07:40)
[2018-07-31] MEDS ORDERED: Bacitracin Ointment 30 GM TUBE ONE (07:40)
[2018-07-31] MEDS ORDERED: Patient's Own Med (Azilsartan Med/Chlorthalidone [Edarbyclor 40-12.5 Mg Tablet] 1 TAB) PO SCH (09:00)
[2018-07-31] MEDS ORDERED: Phenylephrine 10 mg/ml Inj ONE (09:16)
[2018-07-31] MEDS ORDERED: Midazolam 2 MG/2 ML VIAL ONE (09:16)
[2018-07-31] MEDS ORDERED: Lactated Ringer's 1,000 ML IV ONE ×2 (09:25→16:15)
[2018-07-31] MEDS ORDERED: Absorbable Gelatin Sponge Size 12-7 TP ONE (09:30)
[2018-07-31] MEDS ORDERED: Thrombin Topical 5,000 Int Units Spray Kit TOP ONE ×2 (09:30)
[2018-07-31] MEDS ORDERED: Esmolol 100 mg/10ml Inj IV ONE (09:32)
[2018-07-31] MEDS ORDERED: Rocuronium 10 mg/ml (5 ml) ONE (09:33)
[2018-07-31] MEDS ORDERED: Neostigmine 1:1000 (1 mg/ml) Inj ONE (09:48)
[2018-07-31] MEDS ORDERED: Dexamethasone 4 mg/1 ml ONE (09:51)
[2018-07-31] MEDS ORDERED: Albuterol HFA 90 mcg/actuation (8 g) ONE ×2 (09:53→10:17)
[2018-07-31] MEDS ORDERED: Naloxone 0.4 mg/ml Inj (Adult) ONE (10:29)
[2018-07-31] MEDS: HYDROmorphone 0.5 mg/0.5 ml ISec IVP PRN ×5 (10:45→16:40)
[2018-07-31] MEDS ORDERED: Oxycodone/Acetaminophen 5/325 mg Tab PO PRN ×2 (10:52→11:00)
--- NOTE | 2018-07-31 10:52 | PCM.SURG1 ---
Surgeon's Initial Post Op Note - Surgeon's Notes Surgeon: Jorge Zurita MD [employer] Supervisor: Marquis Sanz PA-C Type of Anesthesia: General Endo Anesthesia Administered By: Leyda RYAN Pre-Operative Diagnosis: Cervical spondylosis Operative Findings: see complete operative report Post-Operative Diagnosis: C5-6 cervical spondylosis Operation Performed: C5-6 anterior cervical discectomy and fusion Specimen/Specimens Removed: none Estimated Blood Loss: EBL {In ML}: 20 Blood Products Given: N/A Drains Used: Hunter To (Right anterior) Date of Surgery/Procedure: 07/31/18 Time of Surgery/Procedure: 09:25
[2018-07-31] MEDS: ceFAZolin 2 GM in Sodium Chloride 0.9% 100 ML IVPB SCH (17:00)
--- NOTE | 2018-07-31 19:28 | CARD ---
APPROVED REPORT Date of service: 07/31/2018 EKG Measurement Heart [id number] <Conclusion> Sinus tachycardia Nonspecific ST abnormality Abnormal ECG
[2018-07-31] MEDS: Sodium Chloride 0.9% 1,000 ML IV SCH (21:52)
--- NOTE | 2018-08-01 00:08 | OP ---
PROCEDURE DATE: 07/31/2018 PREOPERATIVE DIAGNOSIS: Cervical spondylosis with myelopathy. POSTOPERATIVE DIAGNOSIS: Cervical spondylosis with myelopathy. PROCEDURE: Partial vertebrectomy of C5 and C6, diskectomy of C5-C6, interbody fusion of C5-C6 using PEEK and bone, plating and instrumentation C5-C6 using spinal elements placed. Fluoroscopy has been used. Microscope has been used. SURGEON: Jorge Zurita MD [employer] ASSEMBLY CLEANER: KELLY Guaman. Marquis Sanz is a physician's safety admin assistant who stayed throughout the case and helped me to perform the surgery. DESCRIPTION OF PROCEDURE: The patient was brought to the operating room, anesthetized with general endotracheal anesthesia, and placed in the supine position. The head was placed on a doughnut. Care was taken to protect all the pressure points. The right side of the neck was thoroughly prepped and draped in standard sterile manner after marking the skin incisions for the cervical vertebrectomy. After prepping and draping the area, a horizontal skin incision in the neck region had been made. Bleeding skins had been controlled with bipolar telecom network manager. Using a Bovie telecom network manager, the platysma had been cut. Dissection had been carried out between the trachea and esophagus medially and sternomastoid carried out laterally. Prevertebral fascia had been cauterized and cut. Identification of levels had been done with the help of fluoroscopy. Longus colli had been detached, attachment of vertebral bodies of C5-C6. Dyonics retractor had been applied. Rest of the operation had been carried out with microscopic magnification and illumination. PARTIAL VERTEBRECTOMY OF C5 AND C6; DISKECTOMY OF C5-C6: By using a high-speed drill, the vertebral bodies of C5 and C6 have been drilled. Drilling was continued posteriorly. Intermittent diskectomy had been performed. Half of the vertebral bodies including cartilage and plates had been removed and there were bony osteophytes noted that had been drilled and dura had been decompressed after opening the posterior longitudinal ligament. INTERBODY FUSION OF C5-C6 USING PEEK AND BONE: The PEEK implant had been brought in, filled with demineralized bone, gently tapped into space creating a partial vertebrectomy of C5 and C6. Position had been confirmed to be good. PLATING AND INSTRUMENTATION OF C5-C6 USING SPINAL ELEMENTS PLATE: The spinal elements plate had been placed at vertebral bodies of C5-C6. By using the 12-mm screw, it had been secured under fluoroscopic control. After that, hemostasis was best achieved. Hunter drain was placed in the wound and brought out through a separate stab neck skin incision. Platysma was closed with 3-0 Vicryl. Skin had been with intradermal 3-0 Vicryl stitches. The patient tolerated the procedure and after procedure was mobilized to the recovery room in manjeet condition. Jorge Zurita MD
[2018-08-01 00:44] VITALS: RESP 18
[2018-08-01] MEDS: ceFAZolin 2 GM in Sodium Chloride 0.9% 100 ML IVPB SCH (01:07)
[2018-08-01 05:31] LABS: HEMOGLOBIN 11.7 g/dL (12.0-16.0); MEAN CELL VOLUME 92.2 fl (81.0-99.0); MEAN CORPUSCULAR HEMOGLOBIN 30.8 pg (27.0-31.0); MEAN CORPUSCULAR HGB CONC 33.4 g/dL (33.0-37.0); RBC 3.79 Mil/uL (3.80-5.20); RED CELL DISTRIBUTION WIDTH 13.7 % (11.5-14.5); WHITE BLOOD COUNT 11.4 K/uL (4.8-10.8)
[2018-08-01 05:48] LABS: BLOOD UREA NITROGEN 14 mg/dl (7-17); CALCIUM 8.5 mg/dL (8.4-10.2); GFR NON-AFRICAN AMERICAN > 60
[2018-08-01] MEDS: Sodium Chloride 0.9% 1,000 ML IV SCH (09:04)
--- NOTE | 2018-08-01 09:28 | CP.PCM.PN ---
Subjective - Date & Time of Evaluation Date of Evaluation: 08/01/18 Time of Evaluation: 08:00 - Subjective Subjective: Patient seen and examined at bedside. Pain is much improved today. Reports pain and paresthesias to LUE has much improved postop. Able to transfer OOB to commode without difficulties. No acute events overnight. Denies CP/SOB/dizzine ss/fever. Objective - Vital Signs/Intake and Output Vital Signs (last 24 hours): Temp Pulse Resp BP Pulse Ox 98.8 F 94 H 18 116/73 97 08/01/18 07:51 08/01/18 07:51 08/01/18 07:51 08/01/18 07:51 08/01/18 07:51 - Medications Medications: Current Medications Acetaminophen (Tylenol 325mg Tab) 650 mg PO Q6 PRN PRN Reason: Pain, Mild (1-3) Cyclobenzaprine HCl (Flexeril) 10 mg PO Q8 PRN PRN Reason: Muscle spasm Last Admin: 08/01/18 04:10 Dose: 10 mg Docusate Sodium (Colace) 100 mg PO BID [facility] Last Admin: 08/01/18 09:03 Dose: 100 mg Home Med (Azilsartan Med/Chlorthalidone [Edarbyclor 40-12.5 Mg Tablet]) 1 tab PO DAILY [facility] Home Med (Liraglutide [Victoza 2-Chip]) 1.2 mg SQ DAILY [facility] Hydromorphone HCl (Dilaudid) 1 mg IVP Q4 PRN PRN Reason: Pain, severe (8-10) Last Admin: 07/31/18 22:41 Dose: 1 mg Sodium Chloride (Sodium Chloride 0.9%) 1,000 mls @ 100 mls/hr IV .Q10H [facility] Stop: 08/01/18 10:55 Last Admin: 08/01/18 09:04 Dose: 100 mls/hr Metformin HCl (Glucophage) 1,000 mg PO BID [facility] Last Admin: 08/01/18 09:03 Dose: 1,000 mg Montelukast Sodium (Singulair) 10 mg PO HS [facility] Last Admin: 07/31/18 21:50 Dose: 10 mg Ondansetron HCl (Zofran Inj) 4 mg IVP Q4 PRN PRN Reason: Nausea/Vomiting Oxycodone/Acetaminophen (Percocet 5/325 Mg Tab) 1 tab PO Q4 PRN PRN Reason: Pain, Mild (1-3) Stop: 08/03/18 10:53 Last Admin: 08/01/18 09:02 Dose: 1 tab Oxycodone/Acetaminophen (Percocet 5/325 Mg Tab) 2 tab PO Q4 PRN PRN Reason: Pain, moderate (4-7) Stop: 08/03/18 13:01 - Labs Labs: 08/01/18 05:17 08/01/18 05:17 PT 11.1 Seconds (9.8-13.1) 07/30/18 10:00 INR 1.0 07/30/18 10:00 APTT 30.6 Seconds (25.6-37.1) 07/30/18 10:00 - Neck Exam Additional comments: Dressings CDI ZEYNEP drain intact with minimal sanguinous drainage no signs of hematoma, minimal swelling sensation and motor intact AXN/MN/UN/RN neg clonus Assessment and Plan (1) Cervical spondylosis Assessment & Plan: POD#1 s/p C5-6 ACDF -Drain removed, dressings changed -PT/OT -soft cervical collar applied -neurosurgically stable for discharge today -f/u in office within 7-10 days -above d/w Dr. Zurita in agreement Status: Acute
[2018-08-01 12:07] VITALS: BP 143/88; PULSE 104; TEMP 98.4
[2018-08-01 12:48] VITALS: O2SAT 99
--- NOTE | 2018-08-01 13:03 | CP.PCM.PCO ---
Assessment/Plan - Assessment/Plan Assessment (Free Text): Pt stable, seen and cleared for d/c home by PA for Dr. Zurita who d/c'd ZEYNEP drain. Seen and cleared for d/c home by Dr. Zacarias. Tolerating diet. Seen by PT, stable for d/c home. UA noted, most like contaminant. Pt asymptomatic, should symptoms of uti begin, pt to call f/u with PMD or Dr. Castro - Consults Consult Orders: Consultations
--- NOTE | 2018-08-01 16:16 | RAD ---
Date of service: 07/31/2018 PROCEDURE: Intraoperative Fluoroscopy. HISTORY: ACDF FINDINGS: Fluoroscopic assistance was provided for ACDF. Please refer to the operative report from THAIS Goodson DR, MD. Total fluoroscopic time (continuous mode) utilized during the procedure 15.7 seconds. Total exam DLP: 2.52 (mGy).
--- NOTE | 2018-08-01 18:54 | CP.PCM.DIS ---
Provider - Provider Date of Admission: 07/30/18 09:56 Attending physician: Krish Castro MD Consults: 07/31/18 10:54 Case Management Referral Routine Comment: Physician Instructions: Reason For Exam: Reason for Referral: Discharge Planning 07/31/18 12:24 Neuro Surgery Consult Routine Comment: Consulting Provider: Jorge Zurita Consulting Physician: Jorge Zurita Reason for Consult: postop nsx mgmt Time Spent in preparation of Discharge (in minutes): 30 Diagnosis - Discharge Diagnosis (1) Cervical spondylosis Status: Acute Hospital Course - Lab Results Lab Results: Micro Results 07/31/18 00:35 Urine,Clean Catch Urine Culture - Final Beta Hemolytic Strep Group B Most Recent Lab Values WBC 11.4 K/uL (4.8-10.8) H D 08/01/18 05:17 RBC 3.79 Mil/uL (3.80-5.20) L 08/01/18 05:17 Hgb 11.7 g/dL (12.0-16.0) L 08/01/18 05:17 Hct 34.9 % (34.0-47.0) 08/01/18 05:17 MCV 92.2 fl (81.0-99.0) 08/01/18 05:17 MCH 30.8 pg (27.0-31.0) 08/01/18 05:17 MCHC 33.4 g/dL (33.0-37.0) 08/01/18 05:17 RDW 13.7 % (11.5-14.5) 08/01/18 05:17 Plt Count 215 K/uL (130-400) 08/01/18 05:17 MPV 9.6 fl (7.2-11.7) 07/31/18 06:00 Neut % (Auto) 48.8 % (50.0-75.0) L 07/31/18 06:00 Lymph % (Auto) 33.7 % (20.0-40.0) 07/31/18 06:00 Casey % (Auto) 8.0 % (0.0-10.0) 07/31/18 06:00 Eos % (Auto) 9.1 % (0.0-4.0) H 07/31/18 06:00 Baso % (Auto) 0.4 % (0.0-2.0) 07/31/18 06:00 Neut # (Auto) 2.6 K/uL (1.8-7.0) 07/31/18 06:00 Lymph # (Auto) 1.8 K/uL (1.0-4.3) 07/31/18 06:00 Casey # (Auto) 0.4 K/uL (0.0-0.8) 07/31/18 06:00 Eos # (Auto) 0.5 K/uL (0.0-0.7) 07/31/18 06:00 Baso # (Auto) 0.0 K/uL (0.0-0.2) 07/31/18 06:00 PT 11.1 Seconds (9.8-13.1) 07/30/18 10:00 INR 1.0 07/30/18 10:00 APTT 30.6 Seconds (25.6-37.1) 07/30/18 10:00 Sodium 136 mmol/l (132-148) 08/01/18 05:17 Potassium 3.9 MMOL/L (3.6-5.0) 08/01/18 05:17 Chloride 100 mmol/L (98-107) 08/01/18 05:17 Carbon Dioxide 28 mmol/L (22-30) 08/01/18 05:17 Anion Gap 12 (10-20) 08/01/18 05:17 BUN 14 mg/dl (7-17) 08/01/18 05:17 Creatinine 0.5 mg/dl (0.7-1.2) L 08/01/18 05:17 Est GFR ( Amer) > 60 08/01/18 05:17 Est GFR (Non-Af Amer) > 60 08/01/18 05:17 POC Glucose (mg/dL) 153 mg/dL (65-110) H 08/01/18 10:44 Random Glucose 162 mg/dL (65-105) H 08/01/18 05:17 Calcium 8.5 mg/dL (8.4-10.2) 08/01/18 05:17 Total Bilirubin 0.8 mg/dl (0.2-1.3) 07/31/18 06:00 AST 56 U/L (14-36) H 07/31/18 06:00 ALT 57 U/L (9-52) H 07/31/18 06:00 Alkaline Phosphatase 43 U/L (38-126) 07/31/18 06:00 Total Protein 7.0 G/DL (6.3-8.2) 07/31/18 06:00 Albumin 3.7 g/dL (3.5-5.0) 07/31/18 06:00 Globulin 3.3 gm/dL (2.2-3.9) 07/31/18 06:00 Albumin/Globulin Ratio 1.1 (1.0-2.1) 07/31/18 06:00 Urine Color Yellow (YELLOW) 07/31/18 00:35 Urine Clarity Slighty-cloudy (Clear) 07/31/18 00:35 Urine pH 5.0 (5.0-8.0) 07/31/18 00:35 Ur Specific [place] 1.024 (1.003-1.030) 07/31/18 00:35 Urine Protein Negative mg/dL (NEGATIVE) 07/31/18 00:35 Urine Glucose (UA) Neg mg/dL (NEGATIVE) 07/31/18 00:35 Urine Ketones Negative mg/dL (NEGATIVE) 07/31/18 00:35 Urine Blood Small (NEGATIVE) 07/31/18 00:35 Urine Nitrate Negative (NEGATIVE) 07/31/18 00:35 Urine Bilirubin Negative (NEGATIVE) 07/31/18 00:35 Urine Urobilinogen 0.2-1.0 mg/dL (0.2-1.0) 07/31/18 00:35 Ur Leukocyte Esterase Neg Del/uL (Negative) 07/31/18 00:35 Urine RBC (Auto) 2 /hpf (0-3) 07/31/18 00:35 Urine Microscopic WBC 1 /hpf (0-5) 07/31/18 00:35 Ur Squamous Epith Cells 4 /hpf (0-5) 07/31/18 00:35 Blood Type A POSITIVE 07/31/18 06:00 Antibody Screen Negative 07/31/18 06:00 BBK History Checked Patient has bt 07/31/18 06:00 - Hospital Course Hospital Course: 48 y/o female admitted for intractable pain of the C spine and left upper extremity. She has a hx of herniated Disc of the lumbar and cervical area and had finished phys therapy in the past. 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 Zurita evaluated C5-6 anterior cervical discectomy and fusion completed Patient did well postoperatively Patient dsicharged home in stable condition Discharge Exam - Head Exam Head Exam: ATRAUMATIC, NORMAL INSPECTION, NORMOCEPHALIC - Respiratory Exam Respiratory Exam: NORMAL BREATHING PATTERN - Cardiovascular Exam Cardiovascular Exam: +S1, +S2 - Neurological Exam Neurological exam: Alert, Oriented x3 - Psychiatric Exam Psychiatric exam: Normal Affect, Normal Mood - Skin Skin Exam: Normal Color, Warm Discharge Plan - Discharge Medications Prescriptions: Cyclobenzaprine [Flexeril] 10 mg PO Q8 #20 tab oxyCODONE/Acetaminophen [Percocet 5/325 mg Tab] 1 tab PO Q6 #10 tab - Follow Up Plan Condition: STABLE Disposition: HOME/ ROUTINE Instructions: Neuropathic Pain, Anterior Cervical Fusion (DC) Additional Instructions: follow up with primary MD 1 week follow up with in 1 week keep dressing dry and clean Referrals: Jorge Zurita MD [Staff Provider] - Krish Castro MD [Staff Provider] -
--- NOTE | 2018-08-02 02:13 | CP.PCM.PN ---
Subjective - Date & Time of Evaluation Date of Evaluation: 07/31/18 Time of Evaluation: 06:50 - Subjective Subjective: Pt seen and assessed at bedside. For cervical procedure with Dr. Zurita today. Medically stable for surgery at this time. Subjective Review of Systems: Reviewed and no additional remarkable complaints except pain to left shoulder. Objective Vital Signs Stable Appears: Non-toxic, No Acute Distress. Head Exam: NORMAL INSPECTION, normocephalic. Eye Exam: Normal appearance, EOMI, PERRLA. Respiratory Exam: NORMAL BREATHING PATTERN, breath sounds clear to auscultation. Cardiovascular Exam: +S1, +S2. RRR. GI & Abdominal Exam: Soft, non-tender, non-distended. Neurological Exam: Alert, Awake, oriented x3. Psychiatric exam: Calm and cooperative. Skin Exam: Normal, Warm, Dry. Assessment/Impression/Plan: 1.) Cervical spondylosis -For C5-C6 ACDF with Dr. Zurita, neurosurgery today. -Has been NPO since midnight. -Labs, meds, and chart reviewed; medically stable for surgery. -will follow with post-op medical care. Objective - Vital Signs/Intake and Output Vital Signs (last 24 hours): Temp Pulse Resp BP Pulse Ox 98.4 F 104 H 18 143/88 99 08/01/18 12:06 08/01/18 12:06 08/01/18 12:06 08/01/18 12:06 08/01/18 12:48 - Labs Labs: 08/01/18 05:17 08/01/18 05:17 PT 11.1 Seconds (9.8-13.1) 07/30/18 10:00 INR 1.0 07/30/18 10:00 APTT 30.6 Seconds (25.6-37.1) 07/30/18 10:00 Assessment and Plan (1) Cervical spondylosis Status: Acute
== END 2018-08-01 15:05 | disposition home or self-care (01) | DRG 473 ==
LOC: H.ER 09:35 → H.ERHOLD 09:56 → H.MEDSURG1 22:04 → H.TEL 07-31 18:11
PROVIDERS: ADMIT Family Medicine; ATTEND Family Medicine
PROC: 0PU30JZ Supplement Cervical Vertebra with Synthetic Substitute, Open Approach (ICD-10-PCS; 2018-07-31)
PROC: 0RG10A0 Fusion of Cervical Vertebral Joint with Interbody Fusion Device, Anterior Approach, Anterior Column, Open Approach (ICD-10-PCS; principal; 2018-07-31 09:45)
DX: M47.12 Other spondylosis with myelopathy, cervical region (principal); M79.632 Pain in left forearm; J45.909 Unspecified asthma, uncomplicated; E11.22 Type 2 diabetes mellitus with diabetic chronic kidney disease; I12.9 Hypertensive chronic kidney disease with stage 1 through stage 4 chronic kidney disease, or unspecified chronic kidney disease; M54.12 Radiculopathy, cervical region; N18.9 Chronic kidney disease, unspecified; E66.9 Obesity, unspecified; Z90.49 Acquired absence of other specified parts of digestive tract; Z87.442 Personal history of urinary calculi